=== PATIENT | female | born 1990 | race Caucasian/White ===

== ENCOUNTER → 2024-09-25 | Outpatient (CLI) | payer OTHER ==
[~2024-09-25] MED LIST: CEPH500 PO; IBUP800 PO; OXYACE5T PO; Verotin-Gr Cap1 EACH PO
[2024-10-04 17:15] LABS: HPV HIGH RISK BY TMA Not Detected; HPV SOURCE Cervical
== END ==
LOC: LAB 10:36 → LAB SHORT 10:36
PROVIDERS: Physician Assistant
DX: Z01.419 Encounter for gynecological examination (general) (routine) without abnormal findings (principal)
CPT/HCPCS: 87624; G0123